=== PATIENT | female | born 1940 | race Caucasian/White ===

== ENCOUNTER → 2016-11-26 | Outpatient (CLI) | payer MEDICARE, OTHER ==
[~2016-11-26] MED LIST: ACET-66 PO; ALEN70TA2 PO; AMLO-511 PO; AMLO5TAB66 PO; CALC1TAB15 PO; CALC600T95 PO; CLON.1 PO; DIGO125T87 PO; LABE200T PO; LOSA100T29 PO; LOSA50TA37 PO; MAGN250T31 PO; METF500T4 PO; METO-325 PO; METO100XL PO; OMEP40CA12 PO; ROFL500T PO; ROSU10 PO; ROSU5TAB3 PO; TIOT185 IH; WARF3TAB29 PO; WARF6TAB23 PO
== END | disposition home or self-care (01) ==
LOC: RADPV 09:52
PROVIDERS: ATTEND Internal Medicine
DX: M19.041 Primary osteoarthritis, right hand (principal); M85.841 Other specified disorders of bone density and structure, right hand

== ENCOUNTER → 2016-11-26 | Outpatient (CLI) | payer MEDICARE, OTHER ==
[~2016-11-26] VITALS: Ht 162.6 cm; Wt 80.0 kg
[2016-11-26 10:53] VITALS: BP 119/74
== END | disposition home or self-care (01) ==
LOC: SRCNTR 10:51
PROVIDERS: ATTEND Internal Medicine Critical Care Medicine
DX: J44.9 Chronic obstructive pulmonary disease, unspecified (principal); I10 Essential (primary) hypertension; I48.91 Unspecified atrial fibrillation; G47.33 Obstructive sleep apnea (adult) (pediatric); M81.8 Other osteoporosis without current pathological fracture; R05 Cough; J06.9 Acute upper respiratory infection, unspecified
CPT/HCPCS: G0463

== ENCOUNTER → 2016-11-28 | Outpatient (CLI) | payer MEDICARE, OTHER | END | disposition home or self-care (01) | LOC: RADPV 09:08 | PROVIDERS: ATTEND Internal Medicine Critical Care Medicine | DX: J44.9 Chronic obstructive pulmonary disease, unspecified (principal); I51.7 Cardiomegaly; I70.0 Atherosclerosis of aorta; J47.9 Bronchiectasis, uncomplicated; Z95.0 Presence of cardiac pacemaker | CPT/HCPCS: 71020 ==

== ENCOUNTER 2017-01-25 20:58 | Emergency (ER) | payer MEDICARE, OTHER ==
[~2017-01-25] VITALS: Ht 162.6 cm; Wt 77.3 kg
[~2017-01-25 20:58] MED LIST changes: -ACET-66 PO; -AMLO-511 PO; -CALC600T95 PO; -CLON.1 PO; -LOSA50TA37 PO; -MAGN250T31 PO; -METF500T4 PO; -METO-325 PO; -ROSU10 PO; -WARF3TAB29 PO
[2017-01-25] MEDS ORDERED: CLON.1 PO (21:39)
[2017-01-25] MEDS ORDERED: DOXYCYCLINE 100 MG CAPSULE PO ONE (23:30)
[2017-01-25] MEDS ORDERED: AZITHROMYCIN 250 MG TABLET PO ONE (23:30)
[2017-01-25 23:47] VITALS: BP 140/78
[2017-02-24] MEDS ORDERED: METF500T4 PO (11:37)
[2017-04-04] MEDS ORDERED: CALC600T95 PO (12:05)
[2017-04-04] MEDS ORDERED: WARF3TAB29 PO (12:05)
[2017-04-04] MEDS ORDERED: AMLO-511 PO (12:07)
[2017-04-04] MEDS ORDERED: ACET-66 PO (12:08)
[2017-04-04] MEDS ORDERED: MAGN250T31 PO (12:08)
[2017-04-04] MEDS ORDERED: ROSU10 PO (14:14)
[2017-04-04] MEDS ORDERED: METO-325 PO (14:14)
[2017-04-04] MEDS ORDERED: LOSA50TA37 PO (14:14)
== END 2017-01-25 23:41 | disposition home or self-care (01) ==
LOC: EMS 21:00
DX: L03.211 Cellulitis of face (principal); J44.9 Chronic obstructive pulmonary disease, unspecified; E11.9 Type 2 diabetes mellitus without complications; I48.91 Unspecified atrial fibrillation; K21.9 Gastro-esophageal reflux disease without esophagitis; E78.00 Pure hypercholesterolemia, unspecified; I49.9 Cardiac arrhythmia, unspecified; I10 Essential (primary) hypertension; Z88.8 Allergy status to other drugs, medicaments and biological substances; Z79.01 Long term (current) use of anticoagulants; Z95.0 Presence of cardiac pacemaker
CPT/HCPCS: 99283

== ENCOUNTER → 2017-02-24 | Outpatient (CLI) | payer MEDICARE, OTHER ==
[~2017-02-24] VITALS: Ht 162.6 cm; Wt 79.0 kg
[~2017-02-24] MED LIST changes: -AMLO5TAB66 PO; +CLON.1 PO; +METF500T4 PO
[2017-02-24 11:31] VITALS: BP 144/88
== END | disposition home or self-care (01) ==
LOC: SRCNTR 10:46
PROVIDERS: ATTEND Internal Medicine Critical Care Medicine
DX: I10 Essential (primary) hypertension (principal); I48.91 Unspecified atrial fibrillation; J44.1 Chronic obstructive pulmonary disease with (acute) exacerbation; G47.33 Obstructive sleep apnea (adult) (pediatric); R05 Cough; J06.9 Acute upper respiratory infection, unspecified; M81.0 Age-related osteoporosis without current pathological fracture; E78.5 Hyperlipidemia, unspecified; Z87.891 Personal history of nicotine dependence
CPT/HCPCS: G0463

== ENCOUNTER → 2017-03-03 | Outpatient (CLI) | payer MEDICARE, OTHER | END | disposition home or self-care (01) | LOC: RADMN 10:18 | PROVIDERS: ATTEND Internal Medicine Critical Care Medicine | DX: J43.9 Emphysema, unspecified (principal); J47.9 Bronchiectasis, uncomplicated | CPT/HCPCS: 71250 ==

== ENCOUNTER 2017-04-07 07:05 | Day surgery (SDC) | payer MEDICARE, OTHER ==
[~2017-04-07] VITALS: Ht 162.6 cm; Wt 76.8 kg
[~2017-04-07 07:05] MED LIST changes: +ACET-66 PO; +AMLO-511 PO; -CALC1TAB15 PO; +CALC600T95 PO; -LOSA100T29 PO; +LOSA50TA37 PO; +MAGN250T31 PO; +METO-325 PO; -METO100XL PO; +ROSU10 PO; -ROSU5TAB3 PO; +WARF3TAB29 PO; -WARF6TAB23 PO
[2017-04-07] MEDS ORDERED: SODIUM CHLORIDE 0.9% 1,000 ML IV ONE ×2 (07:18→07:30)
[2017-04-07 07:53] LABS: BASOPHILS % (AUTO) 0.6 % (0.0-2.0); EOSINOPHILS % (AUTO) 1.3 % (1.0-6.0); HEMATOCRIT 42.1 % (36-46); HEMOGLOBIN 14.5 g/dL (12.0-16.0); LYMPHOCYTES # (AUTO) 1.6 K/uL (1.0-4.8); LYMPHOCYTES % (AUTO) 19.1 % (22.0-44.0); MEAN CORPUSCULAR HEMOGLOBIN 29.5 pg (26.0-34.0); MEAN CORPUSCULAR HGB CONC 34.4 G/dL (31.0-37.0); MEAN CORPUSCULAR VOLUME 86 fL (80-100); MONOCYTES # (AUTO) 0.5 K/uL (0.1-1.0); MONOCYTES % (AUTO) 5.6 % (2.0-9.0); NEUTROPHILS # (AUTO) 6.3 K/uL (1.8-7.7); NEUTROPHILS % (AUTO) 73.4 % (40.0-70.0); PLATELET COUNT (AUTO) 205 K/uL (150-450); RED BLOOD CELL COUNT(AUTO) 4.91 MIL/uL (4.00-5.20); RED CELL DISTRIBUTION WIDTH 15.5 % (11.5-14.5); WHITE BLOOD COUNT (AUTO) 8.6 K/uL (4.5-11.0)
[2017-04-07 08:22] LABS: GLUCOSE,POINT OF CARE 130 MG/DL (70-110)
[2017-04-07] MEDS ORDERED: FentaNYL CITRATE-PF 100 MCG/2 ML VIAL ONE (08:55)
[2017-04-07] MEDS ORDERED: MIDAZOLAM HCL 2 MG/2 ML VIAL ONE (08:55)
[2017-04-07] MEDS ORDERED: FLUMAZENIL 0.1 MG/ML 5 ML VIAL IVP ONE (08:56)
[2017-04-07] MEDS ORDERED: NALOXONE HCL 0.4 MG/ML VIAL ONE (08:56)
[2017-04-07 09:28] LABS: CREATININE 1.12 mg/dL (0.60-1.30)
[2017-04-07] MEDS ORDERED: MIDAZOLAM HCL 2 MG/2 ML VIAL IVP ONE (10:06)
[2017-04-07] MEDS ORDERED: FentaNYL CITRATE-PF 100 MCG/2 ML VIAL IVP ONE (10:06)
== END 2017-04-07 14:30 | disposition home or self-care (01) ==
LOC: SDS 07:05
PROVIDERS: ATTEND Internal Medicine Critical Care Medicine
DX: R91.8 Other nonspecific abnormal finding of lung field (principal); E11.9 Type 2 diabetes mellitus without complications; J44.9 Chronic obstructive pulmonary disease, unspecified; K21.9 Gastro-esophageal reflux disease without esophagitis; K44.9 Diaphragmatic hernia without obstruction or gangrene; G47.30 Sleep apnea, unspecified; M81.0 Age-related osteoporosis without current pathological fracture; K42.9 Umbilical hernia without obstruction or gangrene; N39.3 Stress incontinence (female) (male); Z79.01 Long term (current) use of anticoagulants; Z88.8 Allergy status to other drugs, medicaments and biological substances; Z87.891 Personal history of nicotine dependence; Z95.0 Presence of cardiac pacemaker; Z98.890 Other specified postprocedural states; Z98.42 Cataract extraction status, left eye; Z98.41 Cataract extraction status, right eye
CPT/HCPCS: 32405; 36415; 71010; 77012; 82565; 82962; 84520; 85025; 85610; 85730; 87015; 87070; 87101; 87205; 88305; 88312; 88313; 93005; J2250; J3010; J7030; J2310; J3490

== ENCOUNTER → 2017-04-14 | Outpatient (CLI) | payer MEDICARE, OTHER ==
[~2017-04-14] VITALS: Ht 162.6 cm; Wt 77.0 kg
[2017-04-14 13:41] VITALS: BP 120/73
== END | disposition home or self-care (01) ==
LOC: SRCNTR 13:17
PROVIDERS: ATTEND Internal Medicine Critical Care Medicine
DX: I10 Essential (primary) hypertension (principal); G47.33 Obstructive sleep apnea (adult) (pediatric); I48.91 Unspecified atrial fibrillation; J44.1 Chronic obstructive pulmonary disease with (acute) exacerbation; M81.8 Other osteoporosis without current pathological fracture; R05 Cough; J06.9 Acute upper respiratory infection, unspecified; R91.8 Other nonspecific abnormal finding of lung field; Z87.891 Personal history of nicotine dependence
CPT/HCPCS: G0463

== ENCOUNTER → 2017-05-14 | Outpatient (CLI) | payer MEDICARE, OTHER ==
[~2017-05-14] VITALS: Ht 162.6 cm; Wt 74.0 kg
[2017-05-14 13:34] VITALS: BP 125/75
== END | disposition home or self-care (01) ==
LOC: SRCNTR 13:28
PROVIDERS: ATTEND Internal Medicine
DX: J44.9 Chronic obstructive pulmonary disease, unspecified (principal); I10 Essential (primary) hypertension; R63.4 Abnormal weight loss; I48.91 Unspecified atrial fibrillation; Z79.01 Long term (current) use of anticoagulants
CPT/HCPCS: G0463

== ENCOUNTER 2017-05-23 17:58 | Inpatient (IN) | payer MEDICARE, MEDICAID ==
[~2017-05-23] VITALS: Ht 162.6 cm; Wt 71.7 kg
[2017-05-23 18:33] LABS: GLUCOSE,POINT OF CARE 134 MG/DL (70-110)
[2017-05-23 18:41] LABS: BASOPHILS % (AUTO) 1.3 % (0.0-2.0); EOSINOPHILS % (AUTO) 0.9 % (1.0-6.0); HEMATOCRIT 44.2 % (36-46); LYMPHOCYTES # (AUTO) 2.1 K/uL (1.0-4.8); LYMPHOCYTES % (AUTO) 18.1 % (22.0-44.0); MEAN CORPUSCULAR HEMOGLOBIN 29.5 pg (26.0-34.0); MEAN CORPUSCULAR HGB CONC 33.9 G/dL (31.0-37.0); MEAN CORPUSCULAR VOLUME 87 fL (80-100); MONOCYTES # (AUTO) 0.7 K/uL (0.1-1.0); MONOCYTES % (AUTO) 6.2 % (2.0-9.0); NEUTROPHILS # (AUTO) 8.6 K/uL (1.8-7.7); NEUTROPHILS % (AUTO) 73.5 % (40.0-70.0); PLATELET COUNT (AUTO) 264 K/uL (150-450); RED BLOOD CELL COUNT(AUTO) 5.08 MIL/uL (4.00-5.20); RED CELL DISTRIBUTION WIDTH 17.3 % (11.5-14.5); WHITE BLOOD COUNT (AUTO) 11.7 K/uL (4.5-11.0)
[2017-05-23 18:48] LABS: ADD UA MICROSCOPIC YES; APPEARANCE,URINE CLEAR (CLEAR); GLUCOSE, URINE (UA) NEGATIVE (NEGATIVE); KETONES,URINE NEGATIVE (NEGATIVE); LEUKOCYTE ESTERASE ,URINE TRACE (NEGATIVE); OCCULT BLOOD,URINE NEGATIVE (NEGATIVE); PROTEIN,URINE NEGATIVE (NEGATIVE)
[2017-05-23 18:50] LABS: ANION GAP 11 mmol/L (8-16); CARBON DIOXIDE 22 mmol/L (22-29); CHLORIDE 107 mmol/L (98-107); CREATININE 1.18 mg/dL (0.60-1.30); GLOMERULAR FILTR. RATE CALC 45 mL/min (>60); SODIUM SERUM 140 mmol/L (136-145); UREA NITROGEN, BLOOD 15 mg/dL (7-18)
[2017-05-23 18:52] LABS: INR 3.5 (0.9-1.1); PROTHROMBIN TIME 37.1 SEC (9.4-11.6)
[2017-05-23 18:57] LABS: ALANINE AMINOTRANSFERASE 22 U/L (12-78); ALBUMIN 4.1 g/dL (3.4-5.0); ASPARTATE AMINOTRANSFERASE 10 U/L (15-37); BILIRUBIN,TOTAL 0.6 mg/dL (0.1-1.0); DIGOXIN 0.93 ng/mL (0.90-2.00); RBC MORPHOLOGY COMMENT ABNORMAL RBC MORPH; TOTAL PROTEIN, SERUM 7.8 g/dL (6.4-8.2)
[2017-05-23 18:57] LABS: RBC,URINE None Seen /HPF (0-2); SQUAMOUS EPITHELIAL CELL,UR Few /LPF (None Seen); WBC,URINE 0-2 /HPF (0-5)
[2017-05-23 20:11] LABS: SALICYLATE < 2.8 mg/dL (2.8-20.0)
[2017-05-23 20:37] LABS: ACETAMINOPHEN < 2 mcg/mL (10-30)
[2017-05-23] MEDS ORDERED: HALOPERIDOL 5 MG TABLET PO PRN (21:00)
[2017-05-23] MEDS ORDERED: LORazepam 1 MG TABLET PO PRN (21:00)
[2017-05-23 22:56] VITALS: BP 100/64
[2017-05-23] MEDS ORDERED: PNEUMOCOCCAL VACCINE POLYVALENT 0.5 ML VIAL [PPSV23] IM ONE (23:00)
[2017-05-24 08:54] VITALS: BP 124/75
[2017-05-24] MEDS ORDERED: CloNIDine HCL 0.1 MG TABLET PO PRN (09:45)
[2017-05-24] MEDS ORDERED: MAGNESIUM HYDROXIDE SUSPENSION 30 ML UDCUP PO PRN (09:45)
[2017-05-24] MEDS ORDERED: LOPERAMIDE HCL 2 MG CAPSULE PO PRN (09:45)
[2017-05-24] MEDS ORDERED: BENZOCAINE/MENTHOL LOZENGE [8 LOZENGES/PACKET] MM PRN (09:45)
[2017-05-24] MEDS ORDERED: IBUPROFEN 600 MG TABLET PO PRN (09:45)
[2017-05-24] MEDS ORDERED: ONDANSETRON HCL 4 MG TABLET PO PRN (09:45)
[2017-05-24] MEDS ORDERED: PETROLATUM,WHITE 71 GM JELLY TP PRN (09:45)
[2017-05-24] MEDS ORDERED: ALBUTEROL SULFATE HFA 90 MCG/PUFF 8 GM INHALER IH PRN (09:45)
[2017-05-24] MEDS ORDERED: BACITRACIN 28.4 GM OINTMENT TP PRN (09:45)
[2017-05-24] MEDS: TIOTROPIUM BROMIDE 18 MCG/INH HANDIHALER [5] IH SCH (11:00)
[2017-05-24 16:49] VITALS: BP 129/77
[2017-05-24] MEDS: LABETALOL HCL 200 MG TABLET PO SCH (17:09)
[2017-05-24] MEDS: MetFORMIN HCL 500 MG TABLET PO SCH (17:10)
[2017-05-24] MEDS: LOSARTAN POTASSIUM 50 MG TABLET PO SCH (20:25)
[2017-05-25 01:00] VITALS: BP 129/69
[2017-05-25] MEDS: MAG HYDROX/AL HYDROX/SIMETH ES 30 ML SUSPENSION UDCUP PO PRN (01:17)
[2017-05-25] MEDS: ZOLPIDEM TARTRATE 5 MG TABLET PO PRN (01:17)
[2017-05-25] MEDS: ALENDRONATE SODIUM 70 MG TABLET PO SCH (06:03)
[2017-05-25 06:58] LABS: INR 2.4 (0.9-1.1); PROTHROMBIN TIME 25.2 SEC (9.4-11.6)
[2017-05-25] MEDS: AmLODIPine BESYLATE 5 MG TABLET PO SCH (07:56)
[2017-05-25] MEDS: OMEPRAZOLE 20 MG CAPSULE PO SCH (07:56)
[2017-05-25] MEDS: ROFLUMILAST 500 MCG TABLET PO SCH (07:57)
[2017-05-25] MEDS: DIGOXIN 125 MCG TABLET PO SCH (07:57)
[2017-05-25] MEDS: TIOTROPIUM BROMIDE 18 MCG/INH HANDIHALER [5] IH SCH (07:57)
[2017-05-25] MEDS: LABETALOL HCL 200 MG TABLET PO SCH ×2 (07:57→17:12)
[2017-05-25] MEDS: ESCITALOPRAM OXALATE 10 MG TABLET PO SCH (07:57)
[2017-05-25 08:05] VITALS: BP 125/75
[2017-05-25] MEDS: DOCUSATE SODIUM 100 MG CAPSULE PO SCH (08:06)
[2017-05-25 16:41] VITALS: BP 119/76
[2017-05-25] MEDS: MetFORMIN HCL 500 MG TABLET PO SCH (17:12)
[2017-05-25] MEDS: LOSARTAN POTASSIUM 50 MG TABLET PO SCH (20:29)
[2017-05-26 07:44] LABS: INR 1.5 (0.9-1.1); PROTHROMBIN TIME 15.4 SEC (9.4-11.6)
[2017-05-26 08:30] VITALS: BP 122/80
[2017-05-26] MEDS: TIOTROPIUM BROMIDE 18 MCG/INH HANDIHALER [5] IH SCH (09:15)
[2017-05-26] MEDS: OMEPRAZOLE 20 MG CAPSULE PO SCH ×2 (09:15→20:41)
[2017-05-26] MEDS: ESCITALOPRAM OXALATE 10 MG TABLET PO SCH (09:16)
[2017-05-26] MEDS: DOCUSATE SODIUM 100 MG CAPSULE PO SCH (09:16)
[2017-05-26] MEDS: DIGOXIN 125 MCG TABLET PO SCH (09:16)
[2017-05-26] MEDS: LABETALOL HCL 200 MG TABLET PO SCH ×2 (09:16→17:05)
[2017-05-26] MEDS: AmLODIPine BESYLATE 5 MG TABLET PO SCH (09:16)
[2017-05-26] MEDS: ROFLUMILAST 500 MCG TABLET PO SCH (09:17)
[2017-05-26] MEDS: MAG HYDROX/AL HYDROX/SIMETH ES 30 ML SUSPENSION UDCUP PO PRN (11:36)
[2017-05-26] MEDS ORDERED: WARFARIN SODIUM-INR 2.0-3.0-RX DOSING PER PROTOCOL PO PRN (11:45)
[2017-05-26 16:21] VITALS: BP 132/78
[2017-05-26] MEDS ORDERED: WARFARIN SODIUM 3 MG TABLET PO SCH (17:00)
[2017-05-26] MEDS: WARFARIN SODIUM 3 MG TABLET PO SCH (17:06)
[2017-05-26] MEDS: MetFORMIN HCL 500 MG TABLET PO SCH (18:08)
[2017-05-26] MEDS: LOSARTAN POTASSIUM 50 MG TABLET PO SCH (20:41)
[2017-05-26] MEDS: ZOLPIDEM TARTRATE 5 MG TABLET PO PRN (20:43)
[2017-05-26 20:46] VITALS: BP 117/69
[2017-05-27 03:05] VITALS: BP 134/75
[2017-05-27] MEDS: ACETAMINOPHEN 325 MG TABLET PO PRN ×3 (03:08→20:11)
[2017-05-27 07:30] LABS: INR 1.2 (0.9-1.1); PROTHROMBIN TIME 12.8 SEC (9.4-11.6)
[2017-05-27] MEDS: ESCITALOPRAM OXALATE 10 MG TABLET PO SCH (08:08)
[2017-05-27] MEDS: DOCUSATE SODIUM 100 MG CAPSULE PO SCH (08:08)
[2017-05-27] MEDS: OMEPRAZOLE 20 MG CAPSULE PO SCH ×2 (08:08→20:11)
[2017-05-27] MEDS: ROFLUMILAST 500 MCG TABLET PO SCH (08:08)
[2017-05-27] MEDS: AmLODIPine BESYLATE 5 MG TABLET PO SCH (08:08)
[2017-05-27] MEDS: DIGOXIN 125 MCG TABLET PO SCH (08:08)
[2017-05-27] MEDS: LABETALOL HCL 200 MG TABLET PO SCH ×2 (08:09→17:17)
[2017-05-27 08:13] VITALS: BP 126/66
[2017-05-27] MEDS ORDERED: *CLINICAL-WARFARIN SODIUM DOSING CLINICAL SCH ×2 (09:00)
[2017-05-27] MEDS: TIOTROPIUM BROMIDE 18 MCG/INH HANDIHALER [5] IH SCH (09:17)
[2017-05-27 17:08] VITALS: BP 124/83
[2017-05-27] MEDS: WARFARIN SODIUM 3 MG TABLET PO SCH (17:17)
[2017-05-27] MEDS: MetFORMIN HCL 500 MG TABLET PO SCH (18:46)
[2017-05-27] MEDS: LOSARTAN POTASSIUM 50 MG TABLET PO SCH (20:11)
[2017-05-27 20:15] VITALS: BP 132/69
[2017-05-27] MEDS: ZOLPIDEM TARTRATE 5 MG TABLET PO PRN (21:26)
[2017-05-28 07:18] LABS: INR 1.3 (0.9-1.1); PROTHROMBIN TIME 13.3 SEC (9.4-11.6)
[2017-05-28] MEDS: ACETAMINOPHEN 325 MG TABLET PO PRN ×2 (08:47→21:19)
[2017-05-28] MEDS: OMEPRAZOLE 20 MG CAPSULE PO SCH ×2 (08:48→21:17)
[2017-05-28] MEDS: AmLODIPine BESYLATE 5 MG TABLET PO SCH (08:48)
[2017-05-28] MEDS: DOCUSATE SODIUM 100 MG CAPSULE PO SCH (08:48)
[2017-05-28 08:49] VITALS: BP 106/63
[2017-05-28] MEDS: TIOTROPIUM BROMIDE 18 MCG/INH HANDIHALER [5] IH SCH (08:49)
[2017-05-28] MEDS: DIGOXIN 125 MCG TABLET PO SCH (08:50)
[2017-05-28] MEDS: ROFLUMILAST 500 MCG TABLET PO SCH (08:51)
[2017-05-28] MEDS: ESCITALOPRAM OXALATE 10 MG TABLET PO SCH (08:51)
[2017-05-28] MEDS: LABETALOL HCL 200 MG TABLET PO SCH ×2 (08:52→17:13)
[2017-05-28 09:55] VITALS: BP 123/78
[2017-05-28] MEDS ORDERED: ROFLUMILAST 500 MCG TABLET PO SCH (14:45)
[2017-05-28 16:50] VITALS: BP 117/79
[2017-05-28] MEDS: WARFARIN SODIUM 3 MG TABLET PO SCH (17:13)
[2017-05-28] MEDS: MetFORMIN HCL 500 MG TABLET PO SCH (17:14)
[2017-05-28] MEDS: LOSARTAN POTASSIUM 50 MG TABLET PO SCH (21:17)
[2017-05-28] MEDS: ZOLPIDEM TARTRATE 5 MG TABLET PO PRN (21:18)
[2017-05-28 21:19] VITALS: BP 130/78
[2017-05-28 22:05] VITALS: BP 130/78
[2017-05-29 05:57] LABS: GLUCOSE,POINT OF CARE 99 MG/DL (70-110)
[2017-05-29 06:39] VITALS: BP 148/67
[2017-05-29 07:14] LABS: INR 1.3 (0.9-1.1); PROTHROMBIN TIME 13.7 SEC (9.4-11.6)
[2017-05-29 09:03] VITALS: BP 161/92
[2017-05-29] MEDS: OMEPRAZOLE 20 MG CAPSULE PO SCH ×2 (09:59→20:26)
[2017-05-29] MEDS: DIGOXIN 125 MCG TABLET PO SCH (10:00)
[2017-05-29] MEDS: LABETALOL HCL 200 MG TABLET PO SCH ×2 (10:00→18:25)
[2017-05-29] MEDS: ROFLUMILAST 500 MCG TABLET PO SCH (10:00)
[2017-05-29] MEDS: TIOTROPIUM BROMIDE 18 MCG/INH HANDIHALER [5] IH SCH (10:00)
[2017-05-29] MEDS: AmLODIPine BESYLATE 5 MG TABLET PO SCH ×2 (10:01→16:31)
[2017-05-29] MEDS: DOCUSATE SODIUM 100 MG CAPSULE PO SCH (10:01)
[2017-05-29] MEDS: ESCITALOPRAM OXALATE 10 MG TABLET PO SCH (10:01)
[2017-05-29 16:27] LABS: GLUCOSE,POINT OF CARE 117 MG/DL (70-110)
[2017-05-29] MEDS: WARFARIN SODIUM 3 MG TABLET PO SCH (16:31)
[2017-05-29] MEDS: MetFORMIN HCL 500 MG TABLET PO SCH (16:31)
[2017-05-29 17:05] VITALS: BP 111/69
[2017-05-29] MEDS: ZOLPIDEM TARTRATE 5 MG TABLET PO PRN (20:27)
[2017-05-29] MEDS ORDERED: DICLOFENAC SODIUM 1% 100 GM GEL [2GM] TP PRN (20:45)
[2017-05-29] MEDS: LOSARTAN POTASSIUM 50 MG TABLET PO SCH (21:26)
[2017-05-29] MEDS: ACETAMINOPHEN 325 MG TABLET PO PRN (22:59)
[2017-05-30 05:39] LABS: GLUCOSE COMMENT 1 Received Meds; GLUCOSE,POINT OF CARE 116 MG/DL (70-110)
[2017-05-30 07:07] LABS: HEMATOCRIT 41.1 % (36-46); HEMOGLOBIN 13.5 g/dL (12.0-16.0); MEAN CORPUSCULAR HEMOGLOBIN 29.7 pg (26.0-34.0); MEAN CORPUSCULAR HGB CONC 32.9 G/dL (31.0-37.0); MEAN CORPUSCULAR VOLUME 90 fL (80-100); PLATELET COUNT (AUTO) 220 K/uL (150-450); RED BLOOD CELL COUNT(AUTO) 4.56 MIL/uL (4.00-5.20); RED CELL DISTRIBUTION WIDTH 17.5 % (11.5-14.5); WHITE BLOOD COUNT (AUTO) 6.9 K/uL (4.5-11.0)
[2017-05-30 07:13] LABS: INR 1.4 (0.9-1.1); PROTHROMBIN TIME 14.8 SEC (9.4-11.6)
[2017-05-30 07:29] LABS: CALCIUM, TOTAL 9.6 mg/dL (8.8-10.5); CREATININE 0.95 mg/dL (0.60-1.30); PHOSPHORUS 3.6 mg/dL (2.5-4.9); POTASSIUM 4.7 mmol/L (3.5-5.1)
[2017-05-30 08:00] VITALS: BP 109/69
[2017-05-30] MEDS: LABETALOL HCL 200 MG TABLET PO SCH ×2 (08:14→16:37)
[2017-05-30] MEDS: DIGOXIN 125 MCG TABLET PO SCH (08:14)
[2017-05-30] MEDS: ESCITALOPRAM OXALATE 10 MG TABLET PO SCH (08:14)
[2017-05-30] MEDS: DOCUSATE SODIUM 100 MG CAPSULE PO SCH (08:14)
[2017-05-30] MEDS: ROFLUMILAST 500 MCG TABLET PO SCH (08:14)
[2017-05-30] MEDS: AmLODIPine BESYLATE 5 MG TABLET PO SCH ×2 (08:15→16:38)
[2017-05-30] MEDS: OMEPRAZOLE 20 MG CAPSULE PO SCH ×2 (08:15→20:43)
[2017-05-30 08:45] LABS: BAND NEUTROPHILS % (MANUAL) 1 % (1-5); LYMPHOCYTES % (MANUAL) 18 % (22-44); RBC MORPHOLOGY COMMENT NORMAL RBC MORPH; TOTAL CELLS COUNTED 100
[2017-05-30] MEDS: TIOTROPIUM BROMIDE 18 MCG/INH HANDIHALER [5] IH SCH (09:52)
[2017-05-30 16:32] LABS: GLUCOSE,POINT OF CARE 121 MG/DL (70-110)
[2017-05-30] MEDS: MetFORMIN HCL 500 MG TABLET PO SCH (16:37)
[2017-05-30] MEDS: WARFARIN SODIUM 3 MG TABLET PO SCH (16:38)
[2017-05-30 18:42] VITALS: BP 111/72
[2017-05-30] MEDS: LOSARTAN POTASSIUM 50 MG TABLET PO SCH (20:43)
[2017-05-30] MEDS: ZOLPIDEM TARTRATE 5 MG TABLET PO PRN (20:43)
[2017-05-31 04:27] VITALS: BP 121/82
[2017-05-31] MEDS: ACETAMINOPHEN 325 MG TABLET PO PRN ×3 (04:27→21:25)
[2017-05-31 07:16] LABS: INR 1.5 (0.9-1.1); PROTHROMBIN TIME 16.1 SEC (9.4-11.6)
[2017-05-31 08:16] VITALS: BP 126/61
[2017-05-31] MEDS: TIOTROPIUM BROMIDE 18 MCG/INH HANDIHALER [5] IH SCH (09:04)
[2017-05-31] MEDS: LABETALOL HCL 200 MG TABLET PO SCH ×2 (09:04→16:30)
[2017-05-31] MEDS: AmLODIPine BESYLATE 5 MG TABLET PO SCH ×2 (09:04→16:30)
[2017-05-31] MEDS: ROFLUMILAST 500 MCG TABLET PO SCH (09:04)
[2017-05-31] MEDS: DOCUSATE SODIUM 100 MG CAPSULE PO SCH (09:04)
[2017-05-31] MEDS: ESCITALOPRAM OXALATE 10 MG TABLET PO SCH (09:04)
[2017-05-31] MEDS: OMEPRAZOLE 20 MG CAPSULE PO SCH ×2 (09:05→21:25)
[2017-05-31] MEDS: DIGOXIN 125 MCG TABLET PO SCH (09:05)
[2017-05-31 12:20] VITALS: BP 136/88
[2017-05-31] MEDS: WARFARIN SODIUM 3 MG TABLET PO SCH (16:29)
[2017-05-31] MEDS: MetFORMIN HCL 500 MG TABLET PO SCH (16:31)
[2017-05-31 18:06] VITALS: BP 129/70
[2017-05-31] MEDS: LOSARTAN POTASSIUM 50 MG TABLET PO SCH (21:00)
[2017-05-31] MEDS: ZOLPIDEM TARTRATE 5 MG TABLET PO PRN (23:44)
[2017-06-01] MEDS: ALENDRONATE SODIUM 70 MG TABLET PO SCH (06:46)
[2017-06-01 06:48] VITALS: BP 130/77
[2017-06-01] MEDS: ACETAMINOPHEN 325 MG TABLET PO PRN (06:50)
[2017-06-01 07:02] LABS: INR 1.5 (0.9-1.1); PROTHROMBIN TIME 16.3 SEC (9.4-11.6)
[2017-06-01 07:48] VITALS: BP 114/73
[2017-06-01] MEDS: OMEPRAZOLE 20 MG CAPSULE PO SCH ×2 (08:46→20:26)
[2017-06-01] MEDS: ROFLUMILAST 500 MCG TABLET PO SCH (08:47)
[2017-06-01] MEDS: LABETALOL HCL 200 MG TABLET PO SCH ×2 (08:47→16:58)
[2017-06-01] MEDS: ESCITALOPRAM OXALATE 10 MG TABLET PO SCH (08:47)
[2017-06-01] MEDS: DIGOXIN 125 MCG TABLET PO SCH (08:47)
[2017-06-01] MEDS: AmLODIPine BESYLATE 5 MG TABLET PO SCH ×2 (08:48→17:00)
[2017-06-01] MEDS: TIOTROPIUM BROMIDE 18 MCG/INH HANDIHALER [5] IH SCH (08:49)
[2017-06-01] MEDS: DOCUSATE SODIUM 100 MG CAPSULE PO SCH (08:49)
[2017-06-01] MEDS: MetFORMIN HCL 500 MG TABLET PO SCH (16:59)
[2017-06-01] MEDS ORDERED: WARFARIN SODIUM 7.5 MG TABLET PO ONE (17:00)
[2017-06-01] MEDS: LOSARTAN POTASSIUM 50 MG TABLET PO SCH (20:26)
[2017-06-01 20:58] VITALS: BP 145/86
[2017-06-01] MEDS: ZOLPIDEM TARTRATE 5 MG TABLET PO PRN (23:11)
[2017-06-02] MEDS: ACETAMINOPHEN 325 MG TABLET PO PRN ×3 (00:29→21:03)
[2017-06-02 00:30] VITALS: BP 141/83
[2017-06-02 07:15] LABS: INR 1.5 (0.9-1.1); PROTHROMBIN TIME 16.2 SEC (9.4-11.6)
[2017-06-02 08:22] VITALS: BP 130/82
[2017-06-02] MEDS: TIOTROPIUM BROMIDE 18 MCG/INH HANDIHALER [5] IH SCH (09:00)
[2017-06-02] MEDS: DOCUSATE SODIUM 100 MG CAPSULE PO SCH (09:00)
[2017-06-02] MEDS: ROFLUMILAST 500 MCG TABLET PO SCH (09:01)
[2017-06-02] MEDS: DIGOXIN 125 MCG TABLET PO SCH (09:01)
[2017-06-02] MEDS: ESCITALOPRAM OXALATE 10 MG TABLET PO SCH (09:01)
[2017-06-02] MEDS: LABETALOL HCL 200 MG TABLET PO SCH ×2 (09:02→16:47)
[2017-06-02] MEDS: AmLODIPine BESYLATE 5 MG TABLET PO SCH ×2 (09:02→16:47)
[2017-06-02] MEDS: OMEPRAZOLE 20 MG CAPSULE PO SCH ×2 (09:02→21:02)
[2017-06-02 09:36] LABS: GLUCOSE,POINT OF CARE 114 MG/DL (70-110)
[2017-06-02 10:03] LABS: GLUCOSE,POINT OF CARE 104 MG/DL (70-110)
[2017-06-02 10:22] LABS: GLUCOSE,POINT OF CARE 113 MG/DL (70-110)
[2017-06-02 12:35] VITALS: BP 124/84
[2017-06-02 16:45] VITALS: BP 117/72
[2017-06-02] MEDS: MetFORMIN HCL 500 MG TABLET PO SCH (16:47)
[2017-06-02] MEDS ORDERED: WARFARIN SODIUM 7.5 MG TABLET PO ONE (17:00)
[2017-06-02] MEDS ORDERED: WARFARIN SODIUM 3 MG TABLET PO SCH (17:00)
[2017-06-02 17:48] LABS: GLUCOSE,POINT OF CARE 136 MG/DL (70-110)
[2017-06-02 20:56] VITALS: BP 116/72
[2017-06-02 20:56] LABS: GLUCOSE COMMENT 1 FASTING; GLUCOSE,POINT OF CARE 111 MG/DL (70-110)
[2017-06-02] MEDS: LOSARTAN POTASSIUM 50 MG TABLET PO SCH (21:02)
[2017-06-02] MEDS: ZOLPIDEM TARTRATE 5 MG TABLET PO PRN (21:02)
[2017-06-02 21:17] LABS: GLUCOSE,POINT OF CARE 117 MG/DL (70-110)
[2017-06-03 05:48] LABS: GLUCOSE,POINT OF CARE 115 MG/DL (70-110)
[2017-06-03 07:33] LABS: INR 1.6 (0.9-1.1); PROTHROMBIN TIME 17.3 SEC (9.4-11.6)
[2017-06-03] MEDS: AmLODIPine BESYLATE 5 MG TABLET PO SCH ×2 (09:39→17:02)
[2017-06-03] MEDS: LABETALOL HCL 200 MG TABLET PO SCH ×2 (09:39→17:02)
[2017-06-03] MEDS: TIOTROPIUM BROMIDE 18 MCG/INH HANDIHALER [5] IH SCH (09:39)
[2017-06-03] MEDS: OMEPRAZOLE 20 MG CAPSULE PO SCH ×2 (09:39→20:22)
[2017-06-03] MEDS: DOCUSATE SODIUM 100 MG CAPSULE PO SCH (09:39)
[2017-06-03] MEDS: DIGOXIN 125 MCG TABLET PO SCH (09:39)
[2017-06-03] MEDS: ROFLUMILAST 500 MCG TABLET PO SCH (09:39)
[2017-06-03] MEDS: ESCITALOPRAM OXALATE 10 MG TABLET PO SCH (09:39)
[2017-06-03 09:53] VITALS: BP 113/67
[2017-06-03 16:31] VITALS: BP 141/67
[2017-06-03] MEDS ORDERED: WARFARIN SODIUM 7.5 MG TABLET PO ONE (17:00)
[2017-06-03] MEDS: MetFORMIN HCL 500 MG TABLET PO SCH (18:44)
[2017-06-03] MEDS: LOSARTAN POTASSIUM 50 MG TABLET PO SCH (20:23)
[2017-06-03] MEDS: ZOLPIDEM TARTRATE 5 MG TABLET PO PRN (20:28)
[2017-06-03 20:29] VITALS: BP 129/78
[2017-06-04 05:48] LABS: GLUCOSE COMMENT 1 Received Meds; GLUCOSE,POINT OF CARE 118 MG/DL (70-110)
[2017-06-04] MEDS ORDERED: SULFAMETHOX/TRIMETH DS 800-160 MG/TABLET PO SCH ×2 (06:45→09:00)
[2017-06-04 08:33] LABS: INR 1.8 (0.9-1.1); PROTHROMBIN TIME 18.3 SEC (9.4-11.6)
[2017-06-04] MEDS: TIOTROPIUM BROMIDE 18 MCG/INH HANDIHALER [5] IH SCH (08:41)
[2017-06-04] MEDS: DOCUSATE SODIUM 100 MG CAPSULE PO SCH (08:43)
[2017-06-04] MEDS: AmLODIPine BESYLATE 5 MG TABLET PO SCH (08:43)
[2017-06-04] MEDS: DIGOXIN 125 MCG TABLET PO SCH (08:43)
[2017-06-04] MEDS: OMEPRAZOLE 20 MG CAPSULE PO SCH (08:43)
[2017-06-04] MEDS: ROFLUMILAST 500 MCG TABLET PO SCH (08:43)
[2017-06-04] MEDS: ESCITALOPRAM OXALATE 10 MG TABLET PO SCH (08:44)
[2017-06-04] MEDS: LABETALOL HCL 200 MG TABLET PO SCH (08:44)
[2017-06-04 09:40] VITALS: BP 139/78
[2017-06-04] MEDS ORDERED: ESCI10TA PO (10:18)
[2017-06-04] MEDS ORDERED: DSS100 PO (10:20)
[2017-06-04] MEDS ORDERED: LABE100 PO (10:22)
[2017-06-04] MEDS ORDERED: BACTDSB PO (10:26)
[2017-06-04] MEDS ORDERED: ZOLP5 PO (10:58)
[2017-06-04] MEDS ORDERED: CEPHALEXIN MONOHYDRATE 500 MG CAPSULE PO SCH (13:00)
[2017-06-04] MEDS ORDERED: WARFARIN SODIUM 3 MG TABLET PO ONE (17:00)
== END 2017-06-04 13:30 | disposition home or self-care (01) | DRG 885 ==
LOC: EMS 17:59 → 3EX 21:15
DX: F33.2 Major depressive disorder, recurrent severe without psychotic features (principal); E11.65 Type 2 diabetes mellitus with hyperglycemia; R45.851 Suicidal ideations; J44.9 Chronic obstructive pulmonary disease, unspecified; I48.2 Chronic atrial fibrillation; K21.9 Gastro-esophageal reflux disease without esophagitis; I10 Essential (primary) hypertension; M81.0 Age-related osteoporosis without current pathological fracture; I25.10 Atherosclerotic heart disease of native coronary artery without angina pectoris; G47.33 Obstructive sleep apnea (adult) (pediatric); M19.90 Unspecified osteoarthritis, unspecified site; G47.00 Insomnia, unspecified; R91.1 Solitary pulmonary nodule; E78.5 Hyperlipidemia, unspecified; E78.00 Pure hypercholesterolemia, unspecified; M79.662 Pain in left lower leg; M79.661 Pain in right lower leg; F41.0 Panic disorder [episodic paroxysmal anxiety]; R45.87 Impulsiveness; Z79.899 Other long term (current) drug therapy; Z95.0 Presence of cardiac pacemaker; Z85.118 Personal history of other malignant neoplasm of bronchus and lung; Z56.0 Unemployment, unspecified; Z88.8 Allergy status to other drugs, medicaments and biological substances; Z79.01 Long term (current) use of anticoagulants; Z91.5 Personal history of self-harm
CPT/HCPCS: 82962; 83036; 83735; 84100; 85007; 93005; 93970; 99285; G0480; G0481; J3535

== ENCOUNTER → 2017-11-13 | Outpatient (CLI) | payer MEDICARE, MEDICAID ==
[~2017-11-13] MED LIST changes: -ACET-66 PO; +BACTDSB PO; -CALC600T95 PO; -CLON.1 PO; +DSS100 PO; +ESCI10TA PO; +LABE100 PO; -LABE200T PO; -MAGN250T31 PO; -METO-325 PO; -ROSU10 PO; -WARF3TAB29 PO; +ZOLP5 PO
[2017-11-13 12:47] VITALS: BP 140/81
== END | disposition home or self-care (01) ==
LOC: SRCNTR 12:32
PROVIDERS: ATTEND Internal Medicine
DX: C34.32 Malignant neoplasm of lower lobe, left bronchus or lung (principal); J44.9 Chronic obstructive pulmonary disease, unspecified; Z87.891 Personal history of nicotine dependence
CPT/HCPCS: G0463

== ENCOUNTER → 2017-11-17 | Outpatient (CLI) | payer MEDICARE, OTHER | END | disposition home or self-care (01) | LOC: RADPV 08:56 | PROVIDERS: ATTEND Internal Medicine | DX: J90 Pleural effusion, not elsewhere classified (principal); I51.7 Cardiomegaly; I70.0 Atherosclerosis of aorta | CPT/HCPCS: 71046 ==

== ENCOUNTER 2018-04-14 10:30 | Emergency (ER) | payer MEDICARE, OTHER ==
[~2018-04-14] VITALS: Ht 162.6 cm; Wt 73.6 kg
[~2018-04-14 10:30] MED LIST changes: -METF500T4 PO; +METF500T6 PO
[2018-04-14] MEDS ORDERED: PARO10TA89 PO (10:42)
[2018-04-14] MEDS ORDERED: METO25 PO (10:42)
[2018-04-14] MEDS ORDERED: TIMO PO (10:42)
[2018-04-14] MEDS ORDERED: WARF1 PO (10:42)
[2018-04-14] MEDS ORDERED: ALBU8HFA IH (10:42)
[2018-04-14] MEDS ORDERED: ROSU10 PO (10:42)
[2018-04-14 10:55] LABS: GLUCOSE,POINT OF CARE 143 MG/DL (70-110)
[2018-04-14 11:22] LABS: BASOPHILS % (AUTO) 0.8 % (0.0-2.0); EOSINOPHILS % (AUTO) 0.2 % (1.0-6.0); HEMATOCRIT 39.8 % (36-46); HEMOGLOBIN 13.6 g/dL (12.0-16.0); LYMPHOCYTES % (AUTO) 9.6 % (22.0-44.0); MEAN CORPUSCULAR HEMOGLOBIN 28.8 pg (26.0-34.0); MEAN CORPUSCULAR HGB CONC 34.1 G/dL (31.0-37.0); MEAN CORPUSCULAR VOLUME 84 fL (80-100); MONOCYTES # (AUTO) 0.9 K/uL (0.1-1.0); MONOCYTES % (AUTO) 8.6 % (2.0-9.0); NEUTROPHILS # (AUTO) 8.3 K/uL (1.8-7.7); NEUTROPHILS % (AUTO) 80.8 % (40.0-70.0); PLATELET COUNT (AUTO) 208 K/uL (150-450); RED BLOOD CELL COUNT(AUTO) 4.71 MIL/uL (4.00-5.20); RED CELL DISTRIBUTION WIDTH 16.4 % (11.5-14.5)
[2018-04-14 11:36] LABS: ANION GAP 9 mmol/L (8-16); CALCIUM, TOTAL 9.1 mg/dL (8.8-10.5); CARBON DIOXIDE 25 mmol/L (22-29); CHLORIDE 94 mmol/L (98-107); GLOMERULAR FILTR. RATE CALC 48 mL/min (>60); GLUCOSE,RANDOM 126 mg/dL (70-110); POTASSIUM 3.9 mmol/L (3.5-5.1); SODIUM SERUM 128 mmol/L (136-145); UREA NITROGEN, BLOOD 17 mg/dL (7-18)
[2018-04-14 11:42] LABS: ALANINE AMINOTRANSFERASE 40 U/L (12-78); ALBUMIN 3.4 g/dL (3.4-5.0); ALKALINE PHOSPHATASE 73 U/L (46-116); ASPARTATE AMINOTRANSFERASE 25 U/L (15-37); BILIRUBIN,TOTAL 1.1 mg/dL (0.1-1.0); CREATINE KINASE, TOTAL 24 U/L (26-192); TOTAL PROTEIN, SERUM 7.9 g/dL (6.4-8.2)
[2018-04-14 11:46] LABS: INR 3.4 (0.9-1.1)
[2018-04-14 11:53] LABS: B-TYPE NATRIURETIC PEPTIDE 83 pg/mL (0-100)
[2018-04-14 11:59] LABS: DIGOXIN 0.78 ng/mL (0.90-2.00)
[2018-04-14 12:43] LABS: APPEARANCE,URINE CLOUDY (CLEAR); GLUCOSE, URINE (UA) NEGATIVE (NEGATIVE); KETONES,URINE TRACE mg/dL (NEGATIVE); LEUKOCYTE ESTERASE ,URINE SMALL (NEGATIVE); NITRATE,URINE POSITIVE (NEGATIVE); OCCULT BLOOD,URINE TRACE (NEGATIVE); PROTEIN,URINE POS 1+ (NEGATIVE)
[2018-04-14 12:50] LABS: BILIRUBIN,URINE PRELIM. POSITIVE (NEGATIVE)
[2018-04-14 12:52] LABS: BACTERIA,URINE Many /HPF (None Seen)
[2018-04-14 12:54] LABS: MUCUS,URINE Rare LPF (None Seen); SQUAMOUS EPITHELIAL CELL,UR Many /LPF (None Seen)
[2018-04-14 12:57] LABS: HYALINE CASTS, URINE 0-2 /LPF (None Seen)
[2018-04-14] MEDS ORDERED: CEPHALEXIN MONOHYDRATE 500 MG CAPSULE PO ONE (13:15)
[2018-04-14] MEDS ORDERED: NITROFURANTOIN/NITROFURAN MAC 100 MG CAPSULE [MACROBID] PO ONE (13:45)
[2018-04-14 13:51] VITALS: BP 108/67
[2018-04-15] MEDS ORDERED: PANT40TA PO (23:20)
[2018-04-15] MEDS ORDERED: SPIR50 PO ×2 (23:20)
[2018-04-15] MEDS ORDERED: DIPH25 PO (23:20)
[2018-04-15] MEDS ORDERED: METO-558 PO (23:20)
[2018-04-15] MEDS ORDERED: ROFL500T PO (23:20)
[2018-04-15] MEDS ORDERED: TIOT4MIS2 PO (23:20)
== END 2018-04-14 13:55 | disposition home or self-care (01) ==
LOC: EMS 10:33
DX: N39.0 Urinary tract infection, site not specified (principal); R53.81 Other malaise; R53.83 Other fatigue; R79.1 Abnormal coagulation profile; I10 Essential (primary) hypertension; E11.9 Type 2 diabetes mellitus without complications; K21.9 Gastro-esophageal reflux disease without esophagitis; J44.9 Chronic obstructive pulmonary disease, unspecified; E78.00 Pure hypercholesterolemia, unspecified; I48.91 Unspecified atrial fibrillation; Z88.8 Allergy status to other drugs, medicaments and biological substances
CPT/HCPCS: 82948; 83605; 87040; 87086; 87205; 93005; 99285

== ENCOUNTER → 2018-05-04 | Outpatient (CLI) | payer MEDICARE, MEDICAID ==
[~2018-05-04] VITALS: Ht 162.6 cm; Wt 75.5 kg
[~2018-05-04] MED LIST changes: +ALBU8HFA IH; +AMOX1TAB16 PO; -BACTDSB PO; +DIPH25 PO; -DSS100 PO; -ESCI10TA PO; +METO-558 PO; -OMEP40CA12 PO; +PANT40TA PO; +PARO10TA89 PO; +ROSU10 PO; +SPIR50 PO; +TIMO PO; -TIOT185 IH; +TIOT4MIS2 PO; +WARF6TAB23 PO; -ZOLP5 PO
[2018-05-04 11:07] VITALS: BP 126/68
== END | disposition home or self-care (01) ==
LOC: SRCNTR 11:05
PROVIDERS: ATTEND Internal Medicine Critical Care Medicine
DX: J44.1 Chronic obstructive pulmonary disease with (acute) exacerbation (principal); E66.01 Morbid (severe) obesity due to excess calories; F32.9 Major depressive disorder, single episode, unspecified; J06.9 Acute upper respiratory infection, unspecified; I10 Essential (primary) hypertension; E78.5 Hyperlipidemia, unspecified
CPT/HCPCS: G0463

== ENCOUNTER → 2018-06-09 | Outpatient (CLI) | payer MEDICARE, MEDICAID ==
[~2018-06-09] VITALS: Ht 162.6 cm; Wt 76.5 kg
[2018-06-09 15:04] VITALS: BP 122/69
== END | disposition home or self-care (01) ==
LOC: SRCNTR 14:51
PROVIDERS: ATTEND Internal Medicine Critical Care Medicine
DX: J44.1 Chronic obstructive pulmonary disease with (acute) exacerbation (principal); J06.9 Acute upper respiratory infection, unspecified; F32.9 Major depressive disorder, single episode, unspecified; E66.01 Morbid (severe) obesity due to excess calories; I11.0 Hypertensive heart disease with heart failure; I50.9 Heart failure, unspecified; E78.00 Pure hypercholesterolemia, unspecified; E11.9 Type 2 diabetes mellitus without complications; I25.10 Atherosclerotic heart disease of native coronary artery without angina pectoris; Z85.118 Personal history of other malignant neoplasm of bronchus and lung
CPT/HCPCS: G0463

== ENCOUNTER → 2018-08-17 | Outpatient (CLI) | payer MEDICARE, OTHER ==
[~2018-08-17] VITALS: Ht 162.6 cm; Wt 76.5 kg
[~2018-08-17] MED LIST changes: +LOSA50TA25 PO; -LOSA50TA37 PO; +METF-960 PO; -METF500T6 PO
[2018-08-17 16:06] VITALS: BP 94/59
== END | disposition home or self-care (01) ==
LOC: SRCNTR 16:05
PROVIDERS: ATTEND Internal Medicine Critical Care Medicine
DX: J44.1 Chronic obstructive pulmonary disease with (acute) exacerbation (principal); F32.9 Major depressive disorder, single episode, unspecified; E66.01 Morbid (severe) obesity due to excess calories; K57.30 Diverticulosis of large intestine without perforation or abscess without bleeding; I10 Essential (primary) hypertension; J06.9 Acute upper respiratory infection, unspecified; R09.82 Postnasal drip
CPT/HCPCS: G0463

== ENCOUNTER → 2018-12-23 | Outpatient (CLI) | payer MEDICARE, OTHER ==
[~2018-12-23] VITALS: Ht 162.6 cm; Wt 76.0 kg
[~2018-12-23] MED LIST changes: -LOSA50TA25 PO; +LOSA50TA64 PO; -ROSU10 PO; +ROSU10TA22 PO
[2018-12-23 13:54] VITALS: BP 104/63
== END | disposition home or self-care (01) ==
LOC: SRCNTR 13:44
PROVIDERS: ATTEND Internal Medicine Critical Care Medicine
DX: J44.9 Chronic obstructive pulmonary disease, unspecified (principal); C34.90 Malignant neoplasm of unspecified part of unspecified bronchus or lung; F32.9 Major depressive disorder, single episode, unspecified
CPT/HCPCS: G0463

== ENCOUNTER → 2019-04-07 | Outpatient (CLI) | payer MEDICARE, OTHER ==
[~2019-04-07] MED LIST changes: -LABE100 PO; +LABE100T8 PO
== END | disposition home or self-care (01) ==
LOC: RADMN 12:43
PROVIDERS: ATTEND Internal Medicine Critical Care Medicine
DX: J43.2 Centrilobular emphysema (principal); K80.20 Calculus of gallbladder without cholecystitis without obstruction; K44.9 Diaphragmatic hernia without obstruction or gangrene; I25.10 Atherosclerotic heart disease of native coronary artery without angina pectoris; I51.7 Cardiomegaly
CPT/HCPCS: 71250

== ENCOUNTER 2019-07-17 07:57 | Emergency (ER) | payer MEDICARE, OTHER ==
[~2019-07-17] VITALS: Ht 162.6 cm; Wt 75.0 kg
[~2019-07-17 07:57] MED LIST changes: -AMLO-511 PO; +AMLO5TAB9 PO
[2019-07-17 08:16] LABS: GLUCOSE,POINT OF CARE 118 MG/DL (70-110)
[2019-07-17 10:30] VITALS: BP 131/88
== END 2019-07-17 11:08 | disposition home or self-care (01) ==
LOC: EMS 07:58
DX: S63.591A Other specified sprain of right wrist, initial encounter (principal); M19.041 Primary osteoarthritis, right hand; E11.9 Type 2 diabetes mellitus without complications; E78.00 Pure hypercholesterolemia, unspecified; I48.91 Unspecified atrial fibrillation; I10 Essential (primary) hypertension; G47.30 Sleep apnea, unspecified; J44.9 Chronic obstructive pulmonary disease, unspecified; K21.9 Gastro-esophageal reflux disease without esophagitis; M81.0 Age-related osteoporosis without current pathological fracture; Z79.899 Other long term (current) drug therapy; Z85.118 Personal history of other malignant neoplasm of bronchus and lung; Z79.01 Long term (current) use of anticoagulants; Z88.8 Allergy status to other drugs, medicaments and biological substances; X50.9XXA Other and unspecified overexertion or strenuous movements or postures, initial encounter; Y93.89 Activity, other specified; Y92.89 Other specified places as the place of occurrence of the external cause; Y99.8 Other external cause status

== ENCOUNTER → 2019-09-24 | Outpatient (CLI) | payer MEDICARE, OTHER ==
[~2019-09-24] VITALS: Ht 162.6 cm; Wt 61.0 kg
[~2019-09-24] MED LIST changes: +DIGO125T72 PO; -DIGO125T87 PO
[2019-09-24 14:49] VITALS: BP 116/66
== END | disposition home or self-care (01) ==
LOC: SRCNTR 11:44
PROVIDERS: ATTEND Internal Medicine Critical Care Medicine
DX: J44.9 Chronic obstructive pulmonary disease, unspecified (principal); E66.9 Obesity, unspecified; F33.9 Major depressive disorder, recurrent, unspecified; K57.90 Diverticulosis of intestine, part unspecified, without perforation or abscess without bleeding
CPT/HCPCS: G0463

== ENCOUNTER → 2019-12-30 | Outpatient (CLI) | payer MEDICARE, OTHER ==
[~2019-12-30] VITALS: Ht 162.6 cm; Wt 61.0 kg
[~2019-12-30] MED LIST changes: +LOSA-88 PO; -LOSA50TA64 PO
[2019-12-30 10:10] VITALS: BP 106/73
== END | disposition home or self-care (01) ==
LOC: SRCNTR 10:08
PROVIDERS: ATTEND Internal Medicine Critical Care Medicine
DX: J44.1 Chronic obstructive pulmonary disease with (acute) exacerbation (principal); J06.9 Acute upper respiratory infection, unspecified; F32.9 Major depressive disorder, single episode, unspecified; E66.01 Morbid (severe) obesity due to excess calories; K57.90 Diverticulosis of intestine, part unspecified, without perforation or abscess without bleeding; I48.91 Unspecified atrial fibrillation
CPT/HCPCS: G0463

== ENCOUNTER → 2020-06-01 | Outpatient (CLI) | payer MEDICARE, OTHER ==
[~2020-06-01] VITALS: Ht 162.6 cm; Wt 78.2 kg
[~2020-06-01] MED LIST changes: +AMLO-257 PO; -AMLO5TAB9 PO; -LOSA-88 PO; +LOSA50TA37 PO
[2020-06-01 10:32] VITALS: BP 139/83
== END | disposition home or self-care (01) ==
LOC: SRCNTR 10:28
PROVIDERS: ATTEND Internal Medicine Critical Care Medicine
DX: I10 Essential (primary) hypertension (principal); J44.9 Chronic obstructive pulmonary disease, unspecified; E78.5 Hyperlipidemia, unspecified; I48.91 Unspecified atrial fibrillation; M81.0 Age-related osteoporosis without current pathological fracture; F32.9 Major depressive disorder, single episode, unspecified; K57.90 Diverticulosis of intestine, part unspecified, without perforation or abscess without bleeding; Z85.118 Personal history of other malignant neoplasm of bronchus and lung; Z87.891 Personal history of nicotine dependence; Z90.2 Acquired absence of lung [part of]; Z88.8 Allergy status to other drugs, medicaments and biological substances; Z79.899 Other long term (current) drug therapy
CPT/HCPCS: G0463

== ENCOUNTER → 2020-06-06 | Outpatient (CLI) | payer MEDICARE, OTHER | END | disposition home or self-care (01) | LOC: RADMN 10:09 | PROVIDERS: ATTEND Internal Medicine Critical Care Medicine | DX: J43.9 Emphysema, unspecified (principal); J98.4 Other disorders of lung; I51.7 Cardiomegaly; I31.3 Pericardial effusion (noninflammatory); I25.10 Atherosclerotic heart disease of native coronary artery without angina pectoris; I70.0 Atherosclerosis of aorta; M47.814 Spondylosis without myelopathy or radiculopathy, thoracic region; Z90.2 Acquired absence of lung [part of] | CPT/HCPCS: 71250 ==

== ENCOUNTER → 2020-07-28 | Outpatient (CLI) | payer MEDICARE, OTHER | END | disposition home or self-care (01) | LOC: RADPV 08:22 | PROVIDERS: ATTEND Internal Medicine | DX: I08.8 Other rheumatic multiple valve diseases (principal) | CPT/HCPCS: 93306 ==

== ENCOUNTER → 2020-12-13 | Outpatient (CLI) | payer MEDICARE, OTHER ==
[~2020-12-13] VITALS: Ht 162.6 cm; Wt 76.2 kg
[2020-12-13 16:02] VITALS: BP 133/63
== END | disposition home or self-care (01) ==
LOC: SRCNTR 11:26
PROVIDERS: ATTEND Internal Medicine Critical Care Medicine
DX: N39.0 Urinary tract infection, site not specified (principal); J44.9 Chronic obstructive pulmonary disease, unspecified; K57.90 Diverticulosis of intestine, part unspecified, without perforation or abscess without bleeding; F32.9 Major depressive disorder, single episode, unspecified; E66.01 Morbid (severe) obesity due to excess calories; Z85.118 Personal history of other malignant neoplasm of bronchus and lung
CPT/HCPCS: G0463

== ENCOUNTER → 2020-12-20 | Outpatient (CLI) | payer MEDICARE, OTHER | END | disposition home or self-care (01) | LOC: RADMN 08:28 | PROVIDERS: ATTEND Internal Medicine Critical Care Medicine | DX: J43.2 Centrilobular emphysema (principal); J92.9 Pleural plaque without asbestos; J90 Pleural effusion, not elsewhere classified; K44.9 Diaphragmatic hernia without obstruction or gangrene; I51.7 Cardiomegaly; I25.10 Atherosclerotic heart disease of native coronary artery without angina pectoris; M47.814 Spondylosis without myelopathy or radiculopathy, thoracic region; J98.11 Atelectasis; R59.9 Enlarged lymph nodes, unspecified; Z95.0 Presence of cardiac pacemaker | CPT/HCPCS: 71250 ==

== ENCOUNTER 2020-12-27 18:35 | Emergency (ER) | payer MEDICARE, OTHER ==
[~2020-12-27] VITALS: Ht 162.6 cm; Wt 76.4 kg
[2020-12-27 19:21] LABS: GLUCOSE,POINT OF CARE 118 MG/DL (70-110)
[2020-12-27 19:31] LABS: BASOPHILS % (AUTO) 1.2 % (0.0-2.0); HEMATOCRIT 34.1 % (36-46); HEMOGLOBIN 11.1 g/dL (12.0-16.0); LYMPHOCYTES # (AUTO) 1.3 K/uL (1.0-4.8); MEAN CORPUSCULAR HEMOGLOBIN 27.3 pg (26.0-34.0); MEAN CORPUSCULAR HGB CONC 32.6 G/dL (31.0-37.0); MEAN CORPUSCULAR VOLUME 84 fL (80-100); MONOCYTES # (AUTO) 0.4 K/uL (0.1-1.0); MONOCYTES % (AUTO) 5.7 % (2.0-9.0); NEUTROPHILS # (AUTO) 4.8 K/uL (1.8-7.7); NEUTROPHILS % (AUTO) 71.1 % (40.0-70.0); PLATELET COUNT (AUTO) 248 K/uL (150-450); RED BLOOD CELL COUNT(AUTO) 4.07 MIL/uL (4.00-5.20)
[2020-12-27 19:38] LABS: CALCIUM, TOTAL 9.8 mg/dL (8.8-10.5); CREATININE 1.05 mg/dL (0.60-1.30)
[2020-12-27 19:39] LABS: INR 1.5 (0.9-1.1); PROTHROMBIN TIME 15.6 SEC (9.4-11.6)
[2020-12-27 19:44] LABS: ALBUMIN 4.1 g/dL (3.4-5.0); BILIRUBIN,TOTAL 0.6 mg/dL (0.1-1.0); TOTAL PROTEIN, SERUM 7.8 g/dL (6.4-8.2)
[2020-12-27] MEDS ORDERED: ALBUTEROL SULFATE HFA 90 MCG/PUFF 8 GM INHALER IH ONE (20:15)
[2020-12-27] MEDS ORDERED: WARFARIN SODIUM 5 MG TABLET PO ONE (20:15)
[2020-12-27] MEDS ORDERED: FUROSEMIDE 40 MG/4 ML VIAL IVP ONE (20:15)
[2020-12-27 20:30] VITALS: BP 151/83
== END 2020-12-27 20:34 | disposition home or self-care (01) ==
LOC: EMS 18:35
DX: J44.9 Chronic obstructive pulmonary disease, unspecified (principal); R79.1 Abnormal coagulation profile; I48.91 Unspecified atrial fibrillation; E11.9 Type 2 diabetes mellitus without complications; K21.9 Gastro-esophageal reflux disease without esophagitis; E78.00 Pure hypercholesterolemia, unspecified; I10 Essential (primary) hypertension; Z95.0 Presence of cardiac pacemaker; Z79.01 Long term (current) use of anticoagulants; Z79.84 Long term (current) use of oral hypoglycemic drugs; Z88.8 Allergy status to other drugs, medicaments and biological substances
CPT/HCPCS: 36415; 71045; 80053; 82962; 83880; 84484; 85025; 85610; 93005; 94640; 96374; 99285; J1940; J3535

== ENCOUNTER → 2021-03-26 | Outpatient (CLI) | payer MEDICARE, OTHER ==
[~2021-03-26] VITALS: Ht 162.6 cm; Wt 76.5 kg
[~2021-03-26] MED LIST changes: -ROSU10TA22 PO; +ROSU10TA72 PO
[2021-03-26 10:45] VITALS: BP 140/76
== END | disposition home or self-care (01) ==
LOC: SRCNTR 10:29
PROVIDERS: ATTEND Internal Medicine Critical Care Medicine
DX: C34.90 Malignant neoplasm of unspecified part of unspecified bronchus or lung (principal); J44.1 Chronic obstructive pulmonary disease with (acute) exacerbation; J06.9 Acute upper respiratory infection, unspecified; F32.9 Major depressive disorder, single episode, unspecified; K57.90 Diverticulosis of intestine, part unspecified, without perforation or abscess without bleeding; E66.01 Morbid (severe) obesity due to excess calories
CPT/HCPCS: G0463

== ENCOUNTER 2021-04-05 06:46 | Emergency (ER) | payer MEDICARE, OTHER ==
[~2021-04-05] VITALS: Ht 162.6 cm; Wt 75.9 kg
[2021-04-05 09:54] VITALS: BP 132/80
== END 2021-04-05 09:55 | disposition home or self-care (01) ==
LOC: EMS 06:48
DX: S20.221A Contusion of right back wall of thorax, initial encounter (principal); I48.91 Unspecified atrial fibrillation; J44.9 Chronic obstructive pulmonary disease, unspecified; E11.9 Type 2 diabetes mellitus without complications; K21.9 Gastro-esophageal reflux disease without esophagitis; E78.00 Pure hypercholesterolemia, unspecified; I10 Essential (primary) hypertension; Z95.0 Presence of cardiac pacemaker; Z79.84 Long term (current) use of oral hypoglycemic drugs; Z88.8 Allergy status to other drugs, medicaments and biological substances; W06.XXXA Fall from bed, initial encounter; Y93.89 Activity, other specified; Y92.89 Other specified places as the place of occurrence of the external cause; Y99.8 Other external cause status
CPT/HCPCS: 71101; 82962; 99283

== ENCOUNTER → 2021-05-30 | Outpatient (CLI) | payer MEDICARE, OTHER ==
[~2021-05-30] VITALS: Ht 162.6 cm; Wt 73.5 kg
[~2021-05-30] MED LIST changes: +LABE100T51 PO; -LABE100T8 PO; -SPIR50 PO; +SPIR50TA27 PO
[2021-05-30 10:05] VITALS: BP 120/59
== END | disposition home or self-care (01) ==
LOC: SRCNTR 09:46
PROVIDERS: ATTEND Internal Medicine Critical Care Medicine
DX: I10 Essential (primary) hypertension (principal); E78.5 Hyperlipidemia, unspecified; M81.0 Age-related osteoporosis without current pathological fracture; I48.91 Unspecified atrial fibrillation; J44.9 Chronic obstructive pulmonary disease, unspecified; Z85.118 Personal history of other malignant neoplasm of bronchus and lung; Z90.2 Acquired absence of lung [part of]; Z87.891 Personal history of nicotine dependence
CPT/HCPCS: G0463

== ENCOUNTER → 2021-07-06 | Outpatient (CLI) | payer MEDICARE, OTHER | END | disposition home or self-care (01) | LOC: RADMN 14:30 | PROVIDERS: ATTEND Internal Medicine | DX: I51.7 Cardiomegaly (principal); J81.1 Chronic pulmonary edema; J90 Pleural effusion, not elsewhere classified | CPT/HCPCS: 71046 ==

== ENCOUNTER → 2021-08-16 | Outpatient (CLI) | payer MEDICARE, OTHER ==
[~2021-08-16] VITALS: Ht 162.6 cm; Wt 74.5 kg
[~2021-08-16] MED LIST changes: +METF-1211 PO; -METF-960 PO
[2021-08-16 11:47] VITALS: BP 123/62
== END | disposition home or self-care (01) ==
LOC: SRCNTR 11:16
PROVIDERS: ATTEND Internal Medicine Critical Care Medicine
DX: J44.1 Chronic obstructive pulmonary disease with (acute) exacerbation (principal); J06.9 Acute upper respiratory infection, unspecified; F32.89 Other specified depressive episodes; E66.01 Morbid (severe) obesity due to excess calories; K57.90 Diverticulosis of intestine, part unspecified, without perforation or abscess without bleeding; Z85.118 Personal history of other malignant neoplasm of bronchus and lung
CPT/HCPCS: G0463; Z7500

== ENCOUNTER → 2021-09-28 | Outpatient (CLI) | payer MEDICARE, OTHER ==
[~2021-09-28] VITALS: Ht 162.6 cm; Wt 74.0 kg
[2021-09-28 11:38] VITALS: BP 117/63
== END | disposition home or self-care (01) ==
LOC: SRCNTR 11:02
PROVIDERS: ATTEND Internal Medicine Critical Care Medicine
DX: C34.90 Malignant neoplasm of unspecified part of unspecified bronchus or lung (principal); J44.1 Chronic obstructive pulmonary disease with (acute) exacerbation; K57.90 Diverticulosis of intestine, part unspecified, without perforation or abscess without bleeding; J30.9 Allergic rhinitis, unspecified; J06.9 Acute upper respiratory infection, unspecified; F41.8 Other specified anxiety disorders; E66.9 Obesity, unspecified; Z90.2 Acquired absence of lung [part of]
CPT/HCPCS: G0463

== ENCOUNTER → 2021-11-23 | Outpatient (CLI) | payer MEDICARE, OTHER ==
[~2021-11-23] VITALS: Ht 162.6 cm; Wt 74.0 kg
[~2021-11-23] MED LIST changes: +LOSA-382 PO; -LOSA50TA37 PO
[2021-11-23 12:58] VITALS: BP 125/62
== END | disposition home or self-care (01) ==
LOC: SRCNTR 12:35
PROVIDERS: ATTEND Internal Medicine Critical Care Medicine
DX: J44.1 Chronic obstructive pulmonary disease with (acute) exacerbation (principal); K57.30 Diverticulosis of large intestine without perforation or abscess without bleeding; E66.01 Morbid (severe) obesity due to excess calories; F32.A Depression, unspecified; J30.9 Allergic rhinitis, unspecified; N39.0 Urinary tract infection, site not specified
CPT/HCPCS: G0463; Z7500

== ENCOUNTER → 2022-01-11 | Outpatient (CLI) | payer MEDICARE, OTHER | END | disposition home or self-care (01) | LOC: RADMN 08:32 | PROVIDERS: ATTEND Internal Medicine Critical Care Medicine | DX: I51.7 Cardiomegaly (principal); J44.9 Chronic obstructive pulmonary disease, unspecified | CPT/HCPCS: 71046 ==

== ENCOUNTER → 2022-12-18 | Outpatient (CLI) | payer MEDICARE, OTHER ==
[~2022-12-18] MED LIST changes: -ALEN70TA2 PO; +ALEN70TA85 PO; +DIPH-1243 PO; -DIPH25 PO
== END | disposition home or self-care (01) ==
LOC: RADMN 10:11
PROVIDERS: ATTEND Internal Medicine Pulmonary Disease
DX: J43.9 Emphysema, unspecified (principal); I51.7 Cardiomegaly; I25.10 Atherosclerotic heart disease of native coronary artery without angina pectoris; K76.0 Fatty (change of) liver, not elsewhere classified; K44.9 Diaphragmatic hernia without obstruction or gangrene; M47.814 Spondylosis without myelopathy or radiculopathy, thoracic region; J91.8 Pleural effusion in other conditions classified elsewhere; R06.02 Shortness of breath; Z95.810 Presence of automatic (implantable) cardiac defibrillator
CPT/HCPCS: 71250

== ENCOUNTER → 2022-12-25 | Outpatient (CLI) | payer MEDICARE, OTHER ==
[~2022-12-25] VITALS: Ht 162.6 cm; Wt 72.3 kg
[2022-12-25 10:25] VITALS: BP 132/67
== END | disposition home or self-care (01) ==
LOC: SRCNTR 09:51
PROVIDERS: ATTEND Internal Medicine Pulmonary Disease
DX: I10 Essential (primary) hypertension (principal); E78.5 Hyperlipidemia, unspecified; I48.91 Unspecified atrial fibrillation; M81.0 Age-related osteoporosis without current pathological fracture; R91.1 Solitary pulmonary nodule; J44.1 Chronic obstructive pulmonary disease with (acute) exacerbation; J06.9 Acute upper respiratory infection, unspecified; E66.01 Morbid (severe) obesity due to excess calories; K57.30 Diverticulosis of large intestine without perforation or abscess without bleeding; F32.A Depression, unspecified
CPT/HCPCS: G0463; Z7500

== ENCOUNTER → 2023-09-03 | Outpatient (CLI) | payer MEDICARE, OTHER ==
[~2023-09-03] MED LIST changes: +ALBU18HF12 IH; -ALBU8HFA IH
== END | disposition home or self-care (01) ==
LOC: RADMN 09:55
PROVIDERS: ATTEND Internal Medicine Cardiovascular Disease
DX: R91.1 Solitary pulmonary nodule (principal); I51.7 Cardiomegaly; I27.21 Secondary pulmonary arterial hypertension; J43.9 Emphysema, unspecified; D73.89 Other diseases of spleen; R16.0 Hepatomegaly, not elsewhere classified
CPT/HCPCS: 71250

== ENCOUNTER → 2023-10-03 | Outpatient (CLI) | payer MEDICARE, OTHER ==
[~2023-10-03] VITALS: Ht 162.6 cm; Wt 68.0 kg
[2023-10-03 12:49] VITALS: BP 116/65; PULSE 67; RESP 19; TEMP 98.1; O2SAT 96
== END | disposition home or self-care (01) ==
LOC: SRCNTR 12:23
PROVIDERS: ATTEND Internal Medicine Pulmonary Disease
DX: R91.1 Solitary pulmonary nodule (principal); J44.1 Chronic obstructive pulmonary disease with (acute) exacerbation; J06.9 Acute upper respiratory infection, unspecified; F32.A Depression, unspecified; E66.01 Morbid (severe) obesity due to excess calories; K57.30 Diverticulosis of large intestine without perforation or abscess without bleeding; Z79.82 Long term (current) use of aspirin; Z79.899 Other long term (current) drug therapy; Z87.891 Personal history of nicotine dependence; Z82.49 Family history of ischemic heart disease and other diseases of the circulatory system
CPT/HCPCS: G0463

== ENCOUNTER → 2023-10-23 | Outpatient (CLI) | payer MEDICARE, OTHER | END | disposition home or self-care (01) | LOC: RADMN 09:01 | PROVIDERS: ATTEND Internal Medicine Pulmonary Disease | DX: R91.1 Solitary pulmonary nodule (principal); J43.9 Emphysema, unspecified; I51.7 Cardiomegaly; K44.9 Diaphragmatic hernia without obstruction or gangrene | CPT/HCPCS: 71250 ==

== ENCOUNTER 2023-12-13 04:56 | Emergency (ER) | payer MEDICARE, OTHER ==
[~2023-12-13] VITALS: Ht 164.5 cm; Wt 68.0 kg
[~2023-12-13 04:56] MED LIST changes: -AMLO-257 PO; -AMOX1TAB16 PO; -DIPH-1243 PO; +HYDR473S62 PO; -LABE100T51 PO; +LEVO-72 PO; -LOSA-382 PO; -METO-558 PO; -PARO10TA89 PO; -SPIR50TA27 PO; -WARF6TAB23 PO
[2023-12-13 04:57] VITALS: TEMP 98.3
[2023-12-13 06:43] VITALS: BP 140/81; PULSE 72; RESP 18
[2023-12-13] MEDS ORDERED: FLUC100T68 PO (06:46)
[2023-12-13] MEDS ORDERED: CLOT15CR74 TP (06:46)
== END 2023-12-13 06:49 | disposition home or self-care (01) ==
LOC: EMS 04:57
DX: J18.9 Pneumonia, unspecified organism (principal); B37.31 Acute candidiasis of vulva and vagina; E11.9 Type 2 diabetes mellitus without complications; E78.00 Pure hypercholesterolemia, unspecified; I10 Essential (primary) hypertension; I48.91 Unspecified atrial fibrillation; J44.9 Chronic obstructive pulmonary disease, unspecified; K21.9 Gastro-esophageal reflux disease without esophagitis; K80.20 Calculus of gallbladder without cholecystitis without obstruction
CPT/HCPCS: 71045; 99283

== ENCOUNTER 2023-12-17 04:25 | Inpatient (IN) | payer MEDICARE, OTHER ==
[~2023-12-17] VITALS: Ht 162.6 cm; Wt 69.6 kg
[~2023-12-17 04:25] MED LIST changes: +CLOT15CR75 TP; +FLUC100T68 PO
[2023-12-17 04:53] LABS: BASOPHILS % (AUTO) 1.1 % (0.0-2.0); EOSINOPHILS % (AUTO) 1.2 % (1.0-6.0); HEMATOCRIT 34.4 % (36-46); HEMOGLOBIN 11.6 g/dL (12.0-16.0); LYMPHOCYTES # (AUTO) 1.1 K/uL (1.0-4.8); MEAN CORPUSCULAR HEMOGLOBIN 30.3 pg (26.0-34.0); MEAN CORPUSCULAR HGB CONC 33.8 G/dL (31.0-37.0); MEAN CORPUSCULAR VOLUME 90 fL (80-100); MONOCYTES # (AUTO) 0.5 K/uL (0.1-1.0); MONOCYTES % (AUTO) 5.2 % (2.0-9.0); NEUTROPHILS # (AUTO) 8.2 K/uL (1.8-7.7); NEUTROPHILS % (AUTO) 81.5 % (40.0-70.0); PLATELET COUNT (AUTO) 248 K/uL (150-450); RED BLOOD CELL COUNT(AUTO) 3.84 MIL/uL (4.00-5.20); RED CELL DISTRIBUTION WIDTH 15.7 % (11.5-14.5); WHITE BLOOD COUNT (AUTO) 10.1 K/uL (4.5-11.0)
[2023-12-17 05:04] LABS: CALCIUM, TOTAL 9.7 mg/dL (8.8-10.5); CREATININE 1.14 mg/dL (0.60-1.30); POTASSIUM 4.9 mmol/L (3.5-5.1)
[2023-12-17 05:10] LABS: ALBUMIN 3.3 g/dL (3.4-5.0); BILIRUBIN,TOTAL 0.7 mg/dL (0.1-1.0)
[2023-12-17 05:12] LABS: TROPONIN I-HIGH SENSITIVITY 12 ng/L (<51)
[2023-12-17 06:18] LABS: APPEARANCE,URINE CLEAR (CLEAR); BILIRUBIN,URINE NEGATIVE (NEGATIVE); COLOR,URINE LIGHT YELLOW (YELLOW); GLUCOSE, URINE (UA) NEGATIVE (NEGATIVE); KETONES,URINE NEGATIVE (NEGATIVE); LEUKOCYTE ESTERASE ,URINE LARGE (NEGATIVE); NITRATE,URINE NEGATIVE (NEGATIVE); OCCULT BLOOD,URINE NEGATIVE (NEGATIVE); PROTEIN,URINE 30-70 mg/dL (NEGATIVE); SPECIFIC GRAVITIY, URINE 1.017 (1.003-1.030); UROBILINOGEN,URINE <=1.0 mg/dL (<=1.0)
[2023-12-17 06:45] LABS: RBC,URINE 0-2 /HPF (0-2)
[2023-12-17 06:46] LABS: BACTERIA,URINE Few /HPF (None Seen); SQUAMOUS EPITHELIAL CELL,UR Few /LPF (None Seen)
[2023-12-17 08:53] VITALS: BP 146/72; PULSE 70; RESP 23
[2023-12-17 11:26] LABS: GLUCOMETER DEV NAME(LOC) 6N.2B; GLUCOSE,POINT OF CARE 130 MG/DL (70-110)
[2023-12-17] MEDS: FLUCONAZOLE 150 MG TABLET PO ONE (13:20)
[2023-12-17 16:25] VITALS: BP 130/84; PULSE 59; RESP 18; TEMP 98
[2023-12-17 19:15] VITALS: BP 143/82; PULSE 80; RESP 20; TEMP 98.3
[2023-12-17 20:46] LABS: GLUCOMETER DEV NAME(LOC) 6N.2B; GLUCOSE,POINT OF CARE 143 MG/DL (70-110)
[2023-12-17] MEDS ORDERED: METO-558 PO (21:14)
[2023-12-17] MEDS ORDERED: OMEP20 PO (21:19)
[2023-12-17] MEDS ORDERED: LOSA-382 PO (21:22)
[2023-12-17] MEDS ORDERED: APIX5TAB PO (21:24)
[2023-12-17] MEDS ORDERED: AMLO5TAB66 PO (21:24)
[2023-12-17] MEDS ORDERED: LABE200T56 PO (21:25)
[2023-12-17] MEDS: MORPHINE SULFATE 2 MG/ML SYRINGE IVP ONE (22:14)
[2023-12-17] MEDS ORDERED: DEXTROSE 50%-WATER 25 GM/50 ML SYRINGE IVP PRN (22:15)
[2023-12-17] MEDS: INSULIN LISPRO 100 UNITS/ML SQ PRN (22:17)
[2023-12-17] MEDS ORDERED: ACETAMINOPHEN 325 MG TABLET PO PRN (22:45)
[2023-12-17] MEDS ORDERED: ALBUTEROL SULFATE 2.5 MG/0.5 ML NEB SOLUTION NEB PRN (22:45)
[2023-12-17] MEDS ORDERED: ONDANSETRON HCL 4 MG/2 ML VIAL IVP PRN (22:45)
[2023-12-17] MEDS ORDERED: IPRATROPIUM BROMIDE 0.5 MG/2.5 ML NEB SOLUTION NEB PRN (22:45)
[2023-12-17] MEDS ORDERED: SODIUM CHLORIDE 0.9% 500 ML IV ONE (23:06)
[2023-12-17 23:21] VITALS: BP 145/99; PULSE 111
[2023-12-17] MEDS: DIGOXIN 125 MCG TABLET PO SCH (23:22)
[2023-12-17] MEDS: APIXABAN 5 MG TABLET PO SCH (23:23)
[2023-12-17] MEDS: FUROSEMIDE 20 MG/2 ML VIAL IVP SCH (23:23)
[2023-12-17] MEDS: CefTRIAXone 1 GM/DEXTROSE 50 ML IV SCH (23:23)
[2023-12-17] MEDS: AZITHROMYCIN 500 MG/NS 250 ML IV SCH (23:38)
[2023-12-18] MEDS ORDERED: HEPARIN SODIUM,PORCINE 5,000 UNITS/ML VIAL SQ SCH
[2023-12-18] MEDS ORDERED: BISACODYL 10 MG RECTAL RECTAL SUPPOSITORY PR PRN (01:15)
[2023-12-18] MEDS ORDERED: ACETAMINOPHEN 325 MG TABLET PO PRN (01:15)
[2023-12-18] MEDS ORDERED: ALBUTEROL SULFATE 2.5 MG/0.5 ML NEB SOLUTION NEB PRN (01:15)
[2023-12-18] MEDS ORDERED: IPRATROPIUM BROMIDE 0.5 MG/2.5 ML NEB SOLUTION NEB PRN (01:15)
[2023-12-18] MEDS ORDERED: MAGNESIUM HYDROXIDE SUSPENSION 30 ML UDCUP PO PRN (01:15)
[2023-12-18] MEDS: ZOLPIDEM TARTRATE 5 MG TABLET PO PRN (02:36)
[2023-12-18 04:58] VITALS: BP 142/90; PULSE 85; RESP 20; TEMP 98.3
[2023-12-18 05:56] LABS: GLUCOMETER DEV NAME(LOC) 4E.2; GLUCOSE,POINT OF CARE 142 MG/DL (70-110)
[2023-12-18 06:29] LABS: BASOPHILS % (AUTO) 0.6 % (0.0-2.0); EOSINOPHILS % (AUTO) 0.7 % (1.0-6.0); HEMATOCRIT 36.7 % (36-46); LYMPHOCYTES # (AUTO) 1.1 K/uL (1.0-4.8); LYMPHOCYTES % (AUTO) 9.8 % (22.0-44.0); MEAN CORPUSCULAR HEMOGLOBIN 29.5 pg (26.0-34.0); MEAN CORPUSCULAR HGB CONC 32.7 G/dL (31.0-37.0); MEAN CORPUSCULAR VOLUME 90 fL (80-100); MONOCYTES # (AUTO) 0.7 K/uL (0.1-1.0); MONOCYTES % (AUTO) 6.3 % (2.0-9.0); NEUTROPHILS # (AUTO) 9.6 K/uL (1.8-7.7); NEUTROPHILS % (AUTO) 82.6 % (40.0-70.0); PLATELET COUNT (AUTO) 253 K/uL (150-450); RED BLOOD CELL COUNT(AUTO) 4.06 MIL/uL (4.00-5.20); WHITE BLOOD COUNT (AUTO) 11.6 K/uL (4.5-11.0)
[2023-12-18 06:56] LABS: ANION GAP 13 mmol/L (8-16); CALCIUM, TOTAL 9.4 mg/dL (8.8-10.5); CARBON DIOXIDE 26 mmol/L (22-29); CHLORIDE 104 mmol/L (98-107); CREATININE 0.89 mg/dL (0.60-1.30); GLOMERULAR FILTR. RATE CALC > 60 mL/min (>60); GLUCOSE,RANDOM 125 mg/dL (70-110); POTASSIUM 3.9 mmol/L (3.5-5.1); SODIUM SERUM 143 mmol/L (136-145); UREA NITROGEN, BLOOD 12 mg/dL (7-18)
[2023-12-18 07:43] VITALS: BP 142/81; PULSE 83; RESP 18; TEMP 97.9
[2023-12-18] MEDS: ROFLUMILAST 500 MCG TABLET PO SCH (08:17)
[2023-12-18] MEDS: ROSUVASTATIN CALCIUM 10 MG TABLET PO SCH (08:18)
[2023-12-18] MEDS: LOSARTAN POTASSIUM 50 MG TABLET PO SCH (08:25)
[2023-12-18] MEDS: AmLODIPine BESYLATE 5 MG TABLET PO SCH (08:25)
[2023-12-18] MEDS: PANTOPRAZOLE SODIUM 40 MG DR TABLET PO SCH (08:25)
[2023-12-18] MEDS: DOCUSATE SODIUM 100 MG CAPSULE PO SCH (08:26)
[2023-12-18] MEDS ORDERED: DIGOXIN 125 MCG TABLET PO SCH (09:00)
[2023-12-18] MEDS ORDERED: APIXABAN 5 MG TABLET PO SCH (09:00)
[2023-12-18] MEDS ORDERED: PANTOPRAZOLE SODIUM 40 MG DR TABLET PO SCH (09:00)
[2023-12-18 10:55] VITALS: BP 145/93; PULSE 81; RESP 20; TEMP 97.8
[2023-12-18 15:28] VITALS: BP 140/98; PULSE 110; RESP 20; TEMP 97.8
[2023-12-18] MEDS: FLUCONAZOLE 150 MG TABLET PO ONE (15:29)
[2023-12-18] MEDS: MICONAZOLE NITRATE 200 MG VAGINAL SUPP [3] VG SCH (15:29)
[2023-12-18] MEDS: MORPHINE SULFATE 2 MG/ML SYRINGE IVP PRN (15:45)
[2023-12-18 17:20] LABS: GLUCOMETER DEV NAME(LOC) 4E.2; GLUCOSE,POINT OF CARE 101 MG/DL (70-110)
[2023-12-18 18:31] LABS: GLUCOMETER DEV NAME(LOC) 6N.2B; GLUCOSE,POINT OF CARE 142 MG/DL (70-110)
[2023-12-18 19:24] VITALS: BP 136/91; PULSE 88; RESP 18; TEMP 97.9
[2023-12-18] MEDS: HYDROCODONE/ACETAMINOPHEN 5-325 MG TABLET PO PRN (20:17)
[2023-12-19] VITALS (7 sets, daily range): BP systolic 100–152; BP diastolic 48–89; PULSE 84–125; RESP 18; TEMP 97.6–98.1
[2023-12-19 04:15] LABS: GLUCOMETER DEV NAME(LOC) 4E.2; GLUCOSE,POINT OF CARE 119 MG/DL (70-110)
[2023-12-19 07:51] LABS: GLUCOMETER DEV NAME(LOC) 6S.2; GLUCOSE,POINT OF CARE 144 MG/DL (70-110)
[2023-12-19 11:45] LABS: GLUCOMETER DEV NAME(LOC) 4E.2; GLUCOSE,POINT OF CARE 122 MG/DL (70-110)
[2023-12-19] MEDS: FLUCONAZOLE 150 MG TABLET PO ONE (13:46)
[2023-12-19 17:57] LABS: GLUCOMETER DEV NAME(LOC) 5N.2C; GLUCOSE,POINT OF CARE 172 MG/DL (70-110)
[2023-12-19] MEDS: DILTIAZEM HCL 5 MG/ML 5 ML VIAL IVP ONE (19:01)
[2023-12-19] MEDS: METOPROLOL TARTRATE 25 MG TABLET PO SCH (20:56)
[2023-12-19] MEDS ORDERED: METOPROLOL TARTRATE 25 MG TABLET PO SCH (21:00)
[2023-12-20] VITALS: BP 142/79; PULSE 86; RESP 18; TEMP 97.6
[2023-12-20 02:16] LABS: COVID AG,FIA SOURCE NASAL SWAB
[2023-12-20 02:34] LABS: SARS-COV2 (COVID) ANTIGEN,FIA Negative (Negative)
[2023-12-20 02:36] LABS: RESPIRATORY SYNCYTIAL VIRS,FIA NEGATIVE (Negative)
[2023-12-20 02:52] LABS: INFLUENZA TYPE A NEGATIVE FOR TYPE A (NEGATIVE); INFLUENZA TYPE B NEGATIVE FOR TYPE B (NEGATIVE)
[2023-12-20 04:00] VITALS: BP 127/74; PULSE 96; RESP 19; TEMP 97.8
[2023-12-20 06:35] LABS: GLUCOMETER DEV NAME(LOC) 5S.1B; GLUCOSE,POINT OF CARE 113 MG/DL (70-110)
[2023-12-20] MEDS: ALENDRONATE SODIUM 70 MG TABLET PO SCH (06:37)
[2023-12-20 06:51] LABS: BASOPHILS % (AUTO) 0.9 % (0.0-2.0); EOSINOPHILS % (AUTO) 1.1 % (1.0-6.0); HEMATOCRIT 39.6 % (36-46); HEMOGLOBIN 13.3 g/dL (12.0-16.0); LYMPHOCYTES # (AUTO) 1.3 K/uL (1.0-4.8); LYMPHOCYTES % (AUTO) 12.2 % (22.0-44.0); MEAN CORPUSCULAR HEMOGLOBIN 30.3 pg (26.0-34.0); MEAN CORPUSCULAR HGB CONC 33.6 G/dL (31.0-37.0); MEAN CORPUSCULAR VOLUME 90 fL (80-100); MONOCYTES # (AUTO) 0.5 K/uL (0.1-1.0); NEUTROPHILS # (AUTO) 8.2 K/uL (1.8-7.7); NEUTROPHILS % (AUTO) 80.8 % (40.0-70.0); PLATELET COUNT (AUTO) 246 K/uL (150-450); RED CELL DISTRIBUTION WIDTH 15.6 % (11.5-14.5); WHITE BLOOD COUNT (AUTO) 10.2 K/uL (4.5-11.0)
[2023-12-20 07:15] LABS: TROPONIN I-HIGH SENSITIVITY 21 ng/L (<51)
[2023-12-20 07:22] LABS: CALCIUM, TOTAL 9.7 mg/dL (8.8-10.5); CHLORIDE 100 mmol/L (98-107); CREATININE 0.84 mg/dL (0.60-1.30); DIGOXIN 1.04 ng/mL (0.90-2.00); GLOMERULAR FILTR. RATE CALC > 60 mL/min (>60); GLUCOSE,RANDOM 123 mg/dL (70-110); POTASSIUM 3.8 mmol/L (3.5-5.1); SODIUM SERUM 137 mmol/L (136-145); THYROID STIMULATING HORMONE 1.47 uIU/mL (0.36-3.74); UREA NITROGEN, BLOOD 19 mg/dL (7-18)
[2023-12-20 07:33] LABS: ANION GAP 11 mmol/L (8-16); CARBON DIOXIDE 26 mmol/L (22-29)
[2023-12-20 08:00] VITALS: BP 131/97; PULSE 127; RESP 18; TEMP 97.5
[2023-12-20 08:51] LABS: GLUCOMETER DEV NAME(LOC) 5N.2C; GLUCOSE,POINT OF CARE 135 MG/DL (70-110)
[2023-12-20 11:00] VITALS: BP 110/68; PULSE 110; RESP 19; TEMP 98.4
[2023-12-20 11:45] LABS: GLUCOMETER DEV NAME(LOC) 5N.2C; GLUCOSE,POINT OF CARE 280 MG/DL (70-110)
[2023-12-20 15:06] VITALS: BP 113/61; PULSE 113; RESP 19; TEMP 98.2
[2023-12-20] MEDS: FLUCONAZOLE 150 MG TABLET PO ONE (16:33)
[2023-12-20] MEDS: MICONAZOLE NITRATE 200 MG VAGINAL SUPP [3] VG SCH (20:32)
[2023-12-20] MEDS: METOPROLOL TARTRATE 50 MG TABLET PO SCH (20:32)
[2023-12-20 20:41] VITALS: BP 130/65; PULSE 78; RESP 20; TEMP 97.6
[2023-12-21 00:06] VITALS: BP 114/59; PULSE 64; RESP 18; TEMP 97.9
[2023-12-21 00:06] LABS: GLUCOMETER DEV NAME(LOC) 5N.2C; GLUCOSE,POINT OF CARE 171 MG/DL (70-110)
[2023-12-21 00:11] LABS: GLUCOMETER DEV NAME(LOC) 5N.2C; GLUCOSE,POINT OF CARE 214 MG/DL (70-110)
[2023-12-21 04:04] VITALS: BP 125/65; PULSE 74; RESP 18; TEMP 97.4
[2023-12-21 06:50] LABS: GLUCOMETER DEV NAME(LOC) 5S.1B; GLUCOSE,POINT OF CARE 129 MG/DL (70-110)
[2023-12-21 07:50] VITALS: BP 123/65; PULSE 89; RESP 18; TEMP 97.8
[2023-12-21 12:07] VITALS: BP 108/60; PULSE 64; RESP 16; TEMP 98
[2023-12-21 15:06] VITALS: BP 134/80; PULSE 61; RESP 18; TEMP 97.4
[2023-12-21] MEDS ORDERED: OMEP20 PO (15:54)
[2023-12-21] MEDS ORDERED: METO50 PO (15:54)
[2023-12-21] MEDS ORDERED: MICO45CR44 VG (15:54)
[2023-12-21 19:31] LABS: GLUCOMETER DEV NAME(LOC) 5N.2C; GLUCOSE,POINT OF CARE 113 MG/DL (70-110)
[2023-12-21] MEDS ORDERED: FUROSEMIDE 20 MG TABLET PO SCH (21:00)
== END 2023-12-21 16:30 | disposition home health service (06) | DRG 291 ==
LOC: EMS 04:25 → 6S 07:36 → 5N 12-19 17:30
PROVIDERS: ADMIT Hospitalist; ATTEND Hospitalist
DX: I11.0 Hypertensive heart disease with heart failure (principal); I50.33 Acute on chronic diastolic (congestive) heart failure; J96.21 Acute and chronic respiratory failure with hypoxia; N39.0 Urinary tract infection, site not specified; J44.1 Chronic obstructive pulmonary disease with (acute) exacerbation; Z20.822 Contact with and (suspected) exposure to COVID-19; B37.9 Candidiasis, unspecified; E11.9 Type 2 diabetes mellitus without complications; G47.33 Obstructive sleep apnea (adult) (pediatric); E78.00 Pure hypercholesterolemia, unspecified; I48.91 Unspecified atrial fibrillation; Z88.8 Allergy status to other drugs, medicaments and biological substances; Z87.891 Personal history of nicotine dependence; Z85.118 Personal history of other malignant neoplasm of bronchus and lung; Z90.2 Acquired absence of lung [part of]; Z95.0 Presence of cardiac pacemaker
CPT/HCPCS: 71045; 80048; 80053; 80162; 81001; 82550; 82962; 83735; 83880; 84443; 84484; 85025; 87086; 87186; 87420; 87804; 93005; 93306; 97162; 99285; J0456; J0696; J1940; J2270; J3490; J7040; 36415-L1; 36415-TC

== ENCOUNTER → 2023-12-26 | Outpatient (CLI) | payer MEDICARE, OTHER ==
[~2023-12-26] MED LIST changes: +AMLO5TAB66 PO; +APIX5TAB PO; -FLUC100T68 PO; +LABE200T56 PO; -LEVO-72 PO; +LOSA-382 PO; +METO50 PO; +MICO45CR44 VG; +OMEP20 PO; -PANT40TA PO; -TIMO PO
[2023-12-26 11:55] VITALS: BP 136/52; PULSE 74; RESP 17; TEMP 97.8; O2SAT 95
== END | disposition home or self-care (01) ==
LOC: SRCNTR 11:21
PROVIDERS: ATTEND Internal Medicine Pulmonary Disease
DX: Z85.118 Personal history of other malignant neoplasm of bronchus and lung (principal)
CPT/HCPCS: G0463; Z7500

== ENCOUNTER → 2024-04-06 | Outpatient (CLI) | payer MEDICARE, OTHER ==
[~2024-04-06] VITALS: Ht 162.6 cm; Wt 70.0 kg
[2024-04-06 11:09] VITALS: BP 121/69; PULSE 80; RESP 20; TEMP 97.8; O2SAT 98
== END | disposition home or self-care (01) ==
LOC: SRCNTR 10:58
PROVIDERS: ATTEND Internal Medicine Pulmonary Disease
DX: R91.1 Solitary pulmonary nodule (principal); J44.1 Chronic obstructive pulmonary disease with (acute) exacerbation; J06.9 Acute upper respiratory infection, unspecified; F32.A Depression, unspecified; E66.01 Morbid (severe) obesity due to excess calories; K57.30 Diverticulosis of large intestine without perforation or abscess without bleeding
CPT/HCPCS: G0463

== ENCOUNTER → 2024-06-14 | Outpatient (CLI) | payer MEDICARE, OTHER ==
[~2024-06-14] VITALS: Ht 160 cm; Wt 68.0 kg
[2024-06-14 14:00] VITALS: BP 129/60; PULSE 64; RESP 20; TEMP 98.5; O2SAT 97
== END | disposition home or self-care (01) ==
LOC: SRCNTR 13:06
PROVIDERS: ATTEND Internal Medicine Pulmonary Disease
DX: R91.1 Solitary pulmonary nodule (principal); F32.A Depression, unspecified; E66.01 Morbid (severe) obesity due to excess calories; K57.90 Diverticulosis of intestine, part unspecified, without perforation or abscess without bleeding; J44.1 Chronic obstructive pulmonary disease with (acute) exacerbation; I10 Essential (primary) hypertension; I48.91 Unspecified atrial fibrillation; E78.5 Hyperlipidemia, unspecified; M81.0 Age-related osteoporosis without current pathological fracture; Z98.890 Other specified postprocedural states; Z79.01 Long term (current) use of anticoagulants; Z90.2 Acquired absence of lung [part of]; Z88.8 Allergy status to other drugs, medicaments and biological substances; Z87.891 Personal history of nicotine dependence; Z79.899 Other long term (current) drug therapy
CPT/HCPCS: G0463